=== PATIENT | female | born 1970 | race Caucasian/White ===

== ENCOUNTER → 2022-05-16 13:55 | Outpatient (CLI) | payer OTHER, SELFPAY ==
[2022-05-16 14:28] LABS: COVID19 -Nasal RAPID Negative (Negative)
== END ==
PROVIDERS: Referring Provider Orthopaedic Surgery; Visit Provider Orthopaedic Surgery
DX: Z20.822 Contact with and (suspected) exposure to COVID-19 (principal)
CPT/HCPCS: 87635; C9803

== ENCOUNTER 2022-05-16 14:01 | Day surgery (SDC) | payer OTHER, SELFPAY ==
[2022-05-16] VITALS (11 sets, daily range): BP systolic 115–157; BP diastolic 72–102; PULSE 88–114; RESP 10–22; TEMP 36.5–36.9; O2SAT 93–993; BMI 20.5
[2022-05-16] MEDS: LACTATED RINGERS 1,000 ML 42 ML IV ×2 (15:39→17:55)
--- NOTE | 2022-05-16 16:55 | PM.PREOP ---
Pre-operative Note Interval Note History & Physical reviewed/Exam performed by Physician: Yes Changes to H&P: No
--- NOTE | 2022-05-16 17:48 | SUR.OPER ---
Supine on padded OR bed, head on pillow, arms secured on padded arm boards at <90 degrees abduction, legs uncrossed, safety belt at thigh, tape over blanket over lower legs.
[2022-05-16] MEDS: BUPIVACAINE 0.5% W/ EPI (PF) 30 ML VIAL INJ (17:51)
[2022-05-16] MEDS: CEFAZOLIN VIAL 1 GM in SODIUM CHLORIDE 0.9% 100 ML IV (17:53)
--- NOTE | 2022-05-16 18:40 | P.OP_ITS ---
Operative Date/Time/Diagnoses Date of procedure: 05/16/22 Time of procedure: 18:40 Pre-op diagnosis: Right three-part intra-articular distal radius fracture Post-op diagnosis: same Procedure & Clinicians Procedure: Open reduction internal fixation right 3 part intra-articular distal radius fracture Same procedure as scheduled: Yes Indications: This is a 51-year-old female who presented a few days after a ground level fall resulting in a right intra-articular distal radius fracture. Of note she had a previous extra-articular distal radius fracture that was treated non operatively. Reduction was attempted and failed in the emergency department. In order to facilitate greater range of motion, and avoid nonunion or malunion, we discussed operative fixation. We discussed the risks and benefits including the risk of infection, damage to internal structures, hardware failure, malunion, and need for future surgery. No guarantees were made. She expressed understanding and wished to go forward with surgery. Surgeon: Charlie Miramontes Structural Design Engineer: Zelda An Anesthesia Type: General Operative Notes Findings: Three-part intra-articular distal radius fracture as noted under direct visualization intraoperatively. Closure Type: primary Specimen(s): none sent Prosthetic devices, grafts, tissues, transplants, or devices: Acumed narrow locking distal radius plate Estimated Blood Loss (mL): 10 Blood products transfused: none Tourniquet time (min): 48 Procedure in detail: Preop diagnosis: Right 3 part intra-articular distal radius fracture Postop diagnosis: Right 3 part intra-articular distal radius fracture Patient was met in the preoperative holding area. Her right upper extremity was examined and marked. We again went over consent discussed the risks including t he risks of bleeding, infection, damage to internal structures including the radial artery and median nerve, numbness and tingling, failure of implants, malunion, and future surgery. All of her questions were answered fully to her satisfaction and she wished to go forward with the surgery. She was brought back to the operating room and placed supine on operating table. She underwent smooth induction of anesthesia and antibiotics were given. Tourniquet were applied to the right upper arm. Standard prep and drape was performed. Appropriate drying time was observed. Time-out was performed and again my initials were noted. We began with a modified [place] approach to the volar distal radius on the right side. FCR and FPL were retracted ulnarly and the radial artery was retracted radially. Pronator quadratus was elevated off of the distal radius and the fracture was encountered. A manual reduction was performed and a K-wire was placed through the radial styloid to hold the reduction. An Acumed distal radius locking plate was applied to the distal radius and positioned provisionally with K-wires. Using a kickstand, the distal locking row was filled 1st, then the kickstand was removed and a volar tilt reduction was performed, and the shaft screw was filled with a nonlocking screw in the oblong hole. Once good reduction was observed, the other 2 nonlocking shaft screws we re filled. Finally the styloid screws were drilled and filled. The provisional K-wire was removed and final images were obtained confirming screw length and maintenance of reduction. Skin was then closed with 3-0 Vicryl and 3-0 Monocryl. Wound was then dressed with Xeroform, 4x4s, cast padding and a volar splint. Assisting attestation: The procedure would not have been possible without the assistance of a qualified physician assistance for maintenance of reduction, retraction of skin and tissue and use of tools. Complications: none Post-operative Condition: stable Disposition: PACU Plan for aftercare: Volar splint for 2 weeks, after which she may start moving her wrist as tolerated. We will give her a Velcro wrist splint in clinic for use when she is out and about.
--- NOTE | 2022-05-16 19:28 | SUR.PHASEI ---
Report given to TYREE Brock at 1928
[2022-05-16] MEDS: ONDANSETRON 4 MG/2 ML INJ IV (20:12)
--- NOTE | 2022-05-16 21:31 | SUR.PHASEII ---
2054 Pt dressed up to BR. voided. Emesis after BR and patient stated that apples never sit well on my stomach . Pt stated she felt so much better after emesis. No further emesis or nausea or vomiting or dizziness. Pt DC to home iwth partner Siva. Medication instructions reviewed with Siva at the car.
== END 2022-05-16 21:20 | disposition home or self-care (01) ==
PROVIDERS: Referring Provider Orthopaedic Surgery; Visit Provider Orthopaedic Surgery
PROC: (CPT 25609; principal; 2022-05-16 17:15)
DX: S52.571A Other intraarticular fracture of lower end of right radius, initial encounter for closed fracture (principal); W18.09XA Striking against other object with subsequent fall, initial encounter; Y93.89 Activity, other specified; Y92.89 Other specified places as the place of occurrence of the external cause; Y99.0 Civilian activity done for income or pay; Z20.822 Contact with and (suspected) exposure to COVID-19
CPT/HCPCS: 25609; 87635; C9803; C1713; J0690; J1100; J1170; J1885; J2250; J2405; J2704; J3010